=== PATIENT | male | born 1960 | race Caucasian/White ===

== ENCOUNTER 2021-07-17 09:25 | Emergency (ER) | payer MEDICAID ==
[~2021-07-17] VITALS: Ht 190.5 cm; Wt 125.6 kg
[2021-07-17 09:37] VITALS: BP 165/93
--- NOTE | 2021-07-17 10:47 | NUR ---
Pt ambulated to Chair C.
[2021-07-17] MEDS ORDERED: LIDOCAINE/EPI 1% 1:100000 20 ML VIAL INJ ONE (11:02)
[2021-07-17] MEDS ORDERED: BACI1PAC6 TP (11:05)
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
[2021-07-17] MEDS: LIDOCAINE/EPI 1% 1:100000 20 ML VIAL INJ ONE (11:36)
[2021-07-17] MEDS: BACITRACIN OINT 500 UNITS/GM PKT TP ONE (11:45)
[2021-07-17 11:54] VITALS: BP 154/89
--- NOTE | 2021-07-17 11:54 | NUR ---
Patient discharged with v/s stable. Written and verbal after care instructions given and explained ABOUT LACERATION CARE. Patient alert, oriented and verbalized understanding of instructions. Ambulatory with steady gait. All questions addressed prior to discharge. ID band removed. Patient advised to follow up with PMD. Rx of BACITRACIN given. Patient educated on indication of medication including possible reaction and side effects. Opportunity to ask questions provided and answered.
== END 2021-07-17 11:54 | disposition home or self-care (01) ==
LOC: MED 09:25
DX: S51.812A Laceration without foreign body of left forearm, initial encounter (principal); I10 Essential (primary) hypertension; Z23 Encounter for immunization; Z79.899 Other long term (current) drug therapy; Z98.890 Other specified postprocedural states; W26.0XXA Contact with knife, initial encounter; Y93.89 Activity, other specified; Y92.89 Other specified places as the place of occurrence of the external cause; Y99.8 Other external cause status
CPT/HCPCS: 12001; 90471; 90715; 99283; J2001